=== PATIENT | female | born 1960 | race Caucasian/White ===

== ENCOUNTER 2023-02-24 11:53 | Inpatient (IN) | payer SELFPAY ==
[~2023-02-24 11:53] MED LIST: Iopamidol-370 76% 500 ML MDV (1 ML CHARGE) ONE
[2023-02-24] MEDS ORDERED: Fentanyl BOLUS 250 ML IVPB PRN ×2 (12:15→16:15)
[2023-02-24] MEDS ORDERED: Fentanyl CADD 100 ML IV SCH ×2 (12:15→16:15)
[2023-02-24] MEDS ORDERED: fentaNYL 50 mcg/mL 1 mL Vial ONE (12:20)
[2023-02-24 12:52] LABS: Actual Bicarbonate (HCO3a) 18.8 mEq/L (22-28); Analyzer IN Cardio ER; Base Excess (BEa) -4.5 mEq/L (-2.0 to +3.0); CO2 Tension 29.3 mmHg (35.0-45.0); Carboxyhemoglobin (COHb) 0.3 gm% (0.0-3.0); Hematocrit-ABG 36 % (36.0-47.0); Hemoglobin (Hb) 12.1 g/dL (12.0-16.0); O2 Tension (PaO2), arterial 109.7 mmHg (> 80.0); Potassium - ABG Lab 3.64 mmol/L (3.70-5.30); pH, Arterial 7.424 (7.35-7.45)
[2023-02-24 12:54] LABS: ALV-art Gradient 210.175 mmHg (0-20); Puncture Site RBA
[2023-02-24] MEDS ORDERED: Cefepime 2 GM VIAL ONE (13:26)
[2023-02-24] MEDS ORDERED: Vancomycin 1 GM/200 ML (FROZEN) BAG ONE (13:26)
[2023-02-24 13:42] LABS: #Neutrophils 16.4 thou/uL (1.40-6.50); %Basophils 0.2 % (0.0-1.0); %Eosinophils 0.1 % (0.0-10.0); %Lymphocytes 3.5 % (21.0-51.0); %Monocytes 5.3 % (0.0-10.0); %Neutrophils 90.2 % (42.0-75.0); Hematocrit 33.4 % (36.0-47.0); Hemoglobin 10.6 g/dL (12.0-16.0); Mean Corpuscular HGB CONC 31.7 g/dL (32.0-36.0); Mean Corpuscular Hemoglobin 25.7 pg (27.0-31.0); Mean Corpuscular Volume 81.1 fl (78.0-98.0); Platelet Count 382 10x3/uL (130-400); RBC Distribution Width 15.8 % (11.5-14.5); Red Blood Cell (RBC) Count 4.12 mill/uL (4.20-5.40); White Blood Cell (WBC) Count 18.2 10x3/uL (4.8-10.8)
[2023-02-24 13:48] LABS: Bacteria/HPF None Seen HPF (None Seen); Bilirubin Negative (Negative); Blood, Urine Negative (Negative); CAUTI Indications for Culture Alt mental st,lethar; Clarity Clear (Clear); Glucose, Urine (Dipstick) 300 mg/dL (Negative); Ketone, Urine 20 mg/dL (Negative); Leukocyte Negative Leu/uL (Negative); Nitrite Negative (Negative); Protein, Urine (Dipstick) 70 mg/dL (Neg-Trace); RBC/HPF 0-3 HPF (0-3); Specific Gravity, Urine 1.018 (1.002-1.036); Squamous Epithelial 0-3 HPF (0-3); Urobilinogen Normal mg/dL (Less than 2)
[2023-02-24 13:50] LABS: Urine Culture Reflex No No
[2023-02-24 14:12] LABS: ALT (SGPT) 21 U/L (8-55); AST (SGOT) 30 U/L (5-34); Albumin 3.3 g/dL (3.4-4.8); Alkaline Phosphatase 42 U/L (40-110); Anion Gap 20 mmol/L (10-20); BUN (Urea Nitrogen) 14 mg/dL (9.8-20.1); Calc. Creatinine Clearance 0 mL/min (70-130); Calcium 8.7 mg/dL (7.8-10.44); Carbon Dioxide 19 mmol/L (23-31); Chloride 94 mmol/L (98-107); Estimated GFR 55; Glucose 346 mg/dL (80-115); Magnesium 1.8 mg/dL (1.6-2.6); Potassium 3.9 mmol/L (3.5-5.1); Protein, Total 6.3 g/dL (5.8-8.1); Sodium 129 mmol/L (136-145)
[2023-02-24 14:16] LABS: Troponin I 0.112 ng/mL (< 0.028)
[2023-02-24 14:18] LABS: SARS-CoV-2 NAA Rapid Test Not Detected (NotDetected)
[2023-02-24 14:38] LABS: INR-International Normal Ratio 1.1; Prothrombin Time 14.2 sec (12.0-14.7)
[2023-02-24 14:40] LABS: PTT 27.2 sec (22.9-36.1)
[2023-02-24] MEDS ORDERED: Furosemide 40 MG/4 ML VIAL ONE (14:44)
[2023-02-24] MEDS ORDERED: Aspirin 300 MG Suppository ONE (14:45)
[2023-02-24] MEDS ORDERED: Ipratropium/Albuterol 3 ML NEB NEB PRN (15:39)
[2023-02-24] MEDS ORDERED: Acetaminophen 325 MG TAB PER TUBE PRN (15:39)
[2023-02-24] MEDS ORDERED: Dextrose 50% Abboject 50 ML SYRINGE SLOW IVP PRN (15:39)
[2023-02-24] MEDS ORDERED: HYDROcodone/Acetaminophen 5/325 mg Tablet PER TUBE PRN ×2 (15:39)
[2023-02-24] MEDS ORDERED: Glucagon 1 MG/ML KIT IM PRN (15:39)
[2023-02-24] MEDS ORDERED: Ondansetron PF 4 MG/2 ML Vial IVP PRN (15:39)
[2023-02-24] MEDS ORDERED: Dextrose 5% in Water 1,000 ML IV PRN (15:39)
[2023-02-24] MEDS ORDERED: Bisacodyl 5 MG TAB PO PRN (15:39)
[2023-02-24] MEDS ORDERED: Electrolyte Replacement Protocol 1 EACH IVPB SCH (15:39)
[2023-02-24] MEDS ORDERED: Azithromycin 500 MG in Sodium Chloride 0.9% 250 ML 250 ML IVPB SCH (16:00)
[2023-02-24] MEDS ORDERED: Ventilator Sedation Protocol 1 EACH FS SCH (16:00)
[2023-02-24] MEDS ORDERED: Propofol 1,000 MG/100 ML VIAL IV PRN (16:15)
[2023-02-24] MEDS ORDERED: Propofol BOLUS 1,000 MG/100 ML VIAL IV PRN (16:15)
[2023-02-24] MEDS ORDERED: DISCONTINUE PREVIOUS NARCOTIC PAIN MEDICATIONS AND BENZODIAZEPINES FS SCH (16:15)
[2023-02-24] MEDS ORDERED: Morphine 2 MG/ML VIAL SLOW IVP PRN (16:15)
[2023-02-24] MEDS ORDERED: Lorazepam 2 MG/ML VIAL SLOW IVP PRN (16:19)
[2023-02-24] MEDS ORDERED: Dexmedetomidine In 0.9 % NaCl 100 ML IVPB SCH (16:30)
[2023-02-24] MEDS: Lorazepam 2 MG/ML VIAL SLOW IVP PRN (16:46)
[2023-02-24 17:35] LABS: CRP (Inflammatory) 2.81 mg/dL (= or < 0.5); Uric Acid 5.3 mg/dL (2.6-6.0)
[2023-02-24 17:36] LABS: Lactic Acid 1.5 mmol/L (0.5-2.2)
[2023-02-24 17:40] LABS: Troponin I 0.121 ng/mL (< 0.028)
[2023-02-24 18:13] LABS: Strep pneumo Urine Ag NEGATIVE (NEGATIVE)
[2023-02-24] MEDS: HumaLOG 300 UNITS/3 ML VIAL SC PRN ×2 (18:16→22:50)
[2023-02-24] MEDS: Carvedilol 3.125 MG TAB PER TUBE SCH (18:20)
[2023-02-24] MEDS ORDERED: Furosemide 40 MG/4 ML VIAL SLOW IVP SCH (20:00)
[2023-02-24] MEDS ORDERED: Vancomycin 1 GM in Premix Bag 1 BAG IVPB SCH (21:00)
[2023-02-24] MEDS ORDERED: Magnesium 2 GM/50 ML(in water) 2 GM in Premix Bag 1 BAG IVPB SCH (21:00)
[2023-02-24] MEDS ORDERED: Cefepime 2 GM in Sodium Chloride 0.9% 100 ML IVPB SCH (21:00)
[2023-02-25] MEDS: cefTRIAXone\\ROCEPHIN 2 GM in Sodium Chloride 0.9% 100 ML IVPB SCH ×2 (00:29→23:51)
[2023-02-25 04:38] LABS: #Eosinphils 0.2 thou/uL (0.0-0.7); #Monocytes 0.7 thou/uL (0.11-0.59); #Neutrophils 7.6 thou/uL (1.40-6.50); %Basophils 0.4 % (0.0-1.0); %Lymphocytes 20.2 % (21.0-51.0); %Monocytes 6.7 % (0.0-10.0); %Neutrophils 70.2 % (42.0-75.0); Hemoglobin 9.7 g/dL (12.0-16.0); Mean Corpuscular HGB CONC 32.3 g/dL (32.0-36.0); Mean Corpuscular Hemoglobin 25.9 pg (27.0-31.0); Mean Corpuscular Volume 80.2 fl (78.0-98.0); Mean Platelet Volume 9.9 fL (7.4-10.4); Platelet Count 330 10x3/uL (130-400); RBC Distribution Width 15.8 % (11.5-14.5); Red Blood Cell (RBC) Count 3.74 mill/uL (4.20-5.40); White Blood Cell (WBC) Count 10.7 10x3/uL (4.8-10.8)
[2023-02-25 05:07] LABS: ALT (SGPT) 16 U/L (8-55); AST (SGOT) 22 U/L (5-34); Albumin 2.8 g/dL (3.4-4.8); Alkaline Phosphatase 33 U/L (40-110); Anion Gap 15 mmol/L (10-20); BUN (Urea Nitrogen) 15 mg/dL (9.8-20.1); Bilirubin, Total 0.3 mg/dL (0.2-1.2); Calc. Creatinine Clearance 64 mL/min (70-130); Calcium 8.5 mg/dL (7.8-10.44); Carbon Dioxide 25 mmol/L (23-31); Chloride 97 mmol/L (98-107); Estimated GFR 57; Glucose 101 mg/dL (80-115); Magnesium 2.4 mg/dL (1.6-2.6); Potassium 3.6 mmol/L (3.5-5.1); Protein, Total 5.8 g/dL (5.8-8.1); Sodium 133 mmol/L (136-145)
[2023-02-25] MEDS ORDERED: Furosemide 40 MG/4 ML VIAL SLOW IVP SCH (06:00)
[2023-02-25 07:21] LABS: Actual Bicarbonate (HCO3a) 25.4 mEq/L (22-28); Base Excess (BEa) 1.5 mEq/L (-2.0 to +3.0); CO2 Tension 37.4 mmHg (35.0-45.0); Carboxyhemoglobin (COHb) 0.3 gm% (0.0-3.0); Hematocrit-ABG 34 % (36.0-47.0); Hemoglobin (Hb) 11.4 g/dL (12.0-16.0); O2 Tension (PaO2), arterial 77.4 mmHg (> 80.0); Potassium - ABG Lab 3.48 mmol/L (3.70-5.30)
[2023-02-25 07:27] LABS: Puncture Site RBA
[2023-02-25] MEDS: Lorazepam 2 MG/ML VIAL SLOW IVP PRN ×2 (08:42→21:13)
[2023-02-25] MEDS: Losartan 25 MG TAB PER TUBE SCH (08:43)
[2023-02-25] MEDS: Carvedilol 3.125 MG TAB PER TUBE SCH ×2 (08:43→17:37)
[2023-02-25] MEDS ORDERED: Aspirin Chewable 81 MG TAB PER TUBE SCH ×2 (09:00)
[2023-02-25] MEDS: Dexmedetomidine 400 MCG, Admixture Fee 1 EACH in Sodium Chloride 0.9% 96 ML IVPB SCH ×2 (09:12→23:51)
[2023-02-25] MEDS ORDERED: Calcium Gluconate 9.2 MEQ in Sodium Chloride 0.9% 100 ML IVPB SCH (10:00)
[2023-02-25] MEDS: Furosemide 40 MG/4 ML VIAL SLOW IVP SCH ×3 (12:43→23:51)
[2023-02-25] MEDS ORDERED: Clopidogrel Bisulfate 300 MG TAB PER TUBE SCH (14:30)
[2023-02-25] MEDS: Potassium Bicarbonate/Cit Ac 20 MEQ TAB PO SCH (17:37)
[2023-02-26] MEDS: Furosemide 40 MG/4 ML VIAL SLOW IVP SCH ×2 (05:08→14:47)
[2023-02-26 05:23] LABS: #Basophils 0.1 thou/uL (0.0-0.2); #Eosinphils 0.4 thou/uL (0.0-0.7); #Monocytes 0.8 thou/uL (0.11-0.59); #Neutrophils 6.5 thou/uL (1.40-6.50); %Basophils 0.7 % (0.0-1.0); %Eosinophils 3.8 % (0.0-10.0); %Lymphocytes 21.1 % (21.0-51.0); %Neutrophils 65.9 % (42.0-75.0); Hematocrit 31.7 % (36.0-47.0); Hemoglobin 10.4 g/dL (12.0-16.0); Mean Corpuscular HGB CONC 32.8 g/dL (32.0-36.0); Mean Corpuscular Hemoglobin 26.4 pg (27.0-31.0); Mean Corpuscular Volume 80.5 fl (78.0-98.0); Mean Platelet Volume 10.4 fL (7.4-10.4); Platelet Count 336 10x3/uL (130-400); RBC Distribution Width 16.3 % (11.5-14.5); Red Blood Cell (RBC) Count 3.94 mill/uL (4.20-5.40); White Blood Cell (WBC) Count 9.9 10x3/uL (4.8-10.8)
[2023-02-26 05:58] LABS: ALT (SGPT) 15 U/L (8-55); AST (SGOT) 20 U/L (5-34); Albumin 2.8 g/dL (3.4-4.8); Alkaline Phosphatase 34 U/L (40-110); Anion Gap 14 mmol/L (10-20); BUN (Urea Nitrogen) 15 mg/dL (9.8-20.1); Bilirubin, Total 0.3 mg/dL (0.2-1.2); Calc. Creatinine Clearance 54 mL/min (70-130); Carbon Dioxide 26 mmol/L (23-31); Chloride 96 mmol/L (98-107); Estimated GFR 49; Globulin 3.1 g/dL (2.4-3.5); Glucose 153 mg/dL (80-115); Magnesium 1.9 mg/dL (1.6-2.6); Protein, Total 5.9 g/dL (5.8-8.1); Sodium 133 mmol/L (136-145)
[2023-02-26 06:02] LABS: Troponin I 0.096 ng/mL (< 0.028)
[2023-02-26 06:06] LABS: Cholesterol 174 mg/dl (< 200 Desired); HDL Cholesterol 29 mg/dL (>60 Neg Risk); LDL Cholesterol, Calculated 118 mg/dL; Phosphorus 4.4 mg/dL (2.3-4.7); Triglycerides 137 mg/dL (Less than 150)
[2023-02-26 07:56] LABS: Actual Bicarbonate (HCO3a) 24.6 mEq/L (22-28); Base Excess (BEa) 1.7 mEq/L (-2.0 to +3.0); CO2 Tension 32.9 mmHg (35.0-45.0); Calcium, Ionized (arterial) 1.13 mmol/L (1.12-1.30); Carboxyhemoglobin (COHb) 0.2 gm% (0.0-3.0); Hematocrit-ABG 36 % (36.0-47.0); Hemoglobin (Hb) 12.1 g/dL (12.0-16.0); Potassium - ABG Lab 3.22 mmol/L (3.70-5.30); pH, Arterial 7.491 (7.35-7.45)
[2023-02-26 07:58] LABS: ALV-art Gradient 187.875 mmHg (0-20); Puncture Site RRA
[2023-02-26] MEDS ORDERED: Potassium Bicarbonate/Cit Ac 20 MEQ TAB PER TUBE SCH (08:00)
[2023-02-26] MEDS ORDERED: Magnesium 2 GM/50 ML(in water) 2 GM in Premix Bag 1 BAG IVPB SCH (08:00)
[2023-02-26] MEDS: Losartan 25 MG TAB PER TUBE SCH (08:51)
[2023-02-26] MEDS: Carvedilol 3.125 MG TAB PER TUBE SCH ×2 (08:51→17:01)
[2023-02-26] MEDS: Clopidogrel Bisulfate 75 MG TAB PER TUBE SCH (08:52)
[2023-02-26] MEDS ORDERED: Aspirin 81 mg Enteric Coated Tablet PER TUBE SCH (09:00)
[2023-02-26] MEDS ORDERED: DC Sedation Protocol FS ONE (12:37)
[2023-02-26] MEDS ORDERED: Phenol 177 ML BOT PO PRN (12:39)
[2023-02-26] MEDS ORDERED: Benzocaine/Menthol 1 LOZ LOZ PO PRN (12:39)
[2023-02-26] MEDS: Potassium Bicarbonate/Cit Ac 20 MEQ TAB PO SCH ×2 (13:02→17:01)
[2023-02-26 17:48] LABS: Potassium 3.7 mmol/L (3.5-5.1)
[2023-02-26] MEDS: Senokot S 8.6-50 MG TAB PO SCH (20:16)
[2023-02-26] MEDS: Multivit, Therapeutic 1 TAB PO SCH (20:16)
[2023-02-26] MEDS: HumaLOG 300 UNITS/3 ML VIAL SC PRN (22:27)
[2023-02-27] MEDS: cefTRIAXone\\ROCEPHIN 2 GM in Sodium Chloride 0.9% 100 ML IVPB SCH (00:39)
[2023-02-27 04:33] LABS: #Eosinphils 0.4 thou/uL (0.0-0.7); #Monocytes 1.2 thou/uL (0.11-0.59); #Neutrophils 7.2 thou/uL (1.40-6.50); %Basophils 0.4 % (0.0-1.0); %Eosinophils 3.2 % (0.0-10.0); %Lymphocytes 19.8 % (21.0-51.0); %Monocytes 10.7 % (0.0-10.0); %Neutrophils 65.4 % (42.0-75.0); Hematocrit 33.9 % (36.0-47.0); Hemoglobin 10.7 g/dL (12.0-16.0); Mean Corpuscular HGB CONC 31.6 g/dL (32.0-36.0); Mean Corpuscular Hemoglobin 25.8 pg (27.0-31.0); Mean Corpuscular Volume 81.9 fl (78.0-98.0); Mean Platelet Volume 9.8 fL (7.4-10.4); Platelet Count 368 10x3/uL (130-400); RBC Distribution Width 16.5 % (11.5-14.5); Red Blood Cell (RBC) Count 4.14 mill/uL (4.20-5.40)
[2023-02-27 05:01] LABS: Anion Gap 16 mmol/L (10-20); BUN (Urea Nitrogen) 16 mg/dL (9.8-20.1); Calc. Creatinine Clearance 53 mL/min (70-130); Calcium 9.1 mg/dL (7.8-10.44); Carbon Dioxide 30 mmol/L (23-31); Chloride 93 mmol/L (98-107); Estimated GFR 48; Glucose 140 mg/dL (80-115); Magnesium 2.3 mg/dL (1.6-2.6); Phosphorus 4.7 mg/dL (2.3-4.7); Potassium 3.7 mmol/L (3.5-5.1); Sodium 135 mmol/L (136-145)
[2023-02-27] MEDS: hydrALAZINE 20 MG/ML VIAL SLOW IVP PRN ×2 (07:38→21:07)
[2023-02-27] MEDS: Potassium Bicarbonate/Cit Ac 20 MEQ TAB PO SCH ×2 (07:57→17:14)
[2023-02-27] MEDS: Carvedilol 6.25 MG TAB PO SCH ×2 (08:15→17:13)
[2023-02-27] MEDS: Senokot S 8.6-50 MG TAB PO SCH ×2 (08:16→20:05)
[2023-02-27] MEDS: Aspirin Chewable 81 MG TAB PER TUBE SCH (08:16)
[2023-02-27] MEDS: Losartan 25 MG TAB PO SCH ×2 (08:16→20:05)
[2023-02-27] MEDS: Clopidogrel Bisulfate 75 MG TAB PER TUBE SCH (08:16)
[2023-02-27] MEDS: Furosemide 40 MG/4 ML VIAL SLOW IVP SCH (08:17)
[2023-02-27] MEDS: Heparin 5,000 UNITS/ML VIAL SC SCH ×2 (08:17→20:05)
[2023-02-27 10:15] LABS: O2 Tension (PaO2), arterial 56.2 mmHg (> 80.0)
[2023-02-27] MEDS: HumaLOG 300 UNITS/3 ML VIAL SC PRN ×2 (10:41→20:06)
[2023-02-27] MEDS: Multivit, Therapeutic 1 TAB PO SCH (20:05)
[2023-02-27] MEDS ORDERED: Senokot S 8.6-50 MG TAB PO SCH (21:00)
[2023-02-27] MEDS ORDERED: Labetalol HCl 100 MG/20 ML VIAL SLOW IVP SCH (22:15)
[2023-02-28] MEDS: cefTRIAXone\\ROCEPHIN 2 GM in Sodium Chloride 0.9% 100 ML IVPB SCH (00:45)
[2023-02-28] MEDS ORDERED: Melatonin 3 MG TAB PO SCH (01:00)
[2023-02-28] MEDS: hydrALAZINE 20 MG/ML VIAL SLOW IVP PRN (05:21)
[2023-02-28] MEDS: HumaLOG 300 UNITS/3 ML VIAL SC PRN ×3 (06:19→20:44)
[2023-02-28 07:57] LABS: #Basophils 0.1 thou/uL (0.0-0.2); #Eosinphils 0.3 thou/uL (0.0-0.7); #Monocytes 0.9 thou/uL (0.11-0.59); #Neutrophils 6.1 thou/uL (1.40-6.50); %Basophils 0.7 % (0.0-1.0); %Eosinophils 3.6 % (0.0-10.0); %Lymphocytes 14.7 % (21.0-51.0); %Monocytes 9.9 % (0.0-10.0); %Neutrophils 70.8 % (42.0-75.0); Hemoglobin 11.7 g/dL (12.0-16.0); Mean Corpuscular HGB CONC 31.6 g/dL (32.0-36.0); Mean Corpuscular Hemoglobin 25.9 pg (27.0-31.0); Mean Platelet Volume 9.5 fL (7.4-10.4); Platelet Count 402 10x3/uL (130-400); RBC Distribution Width 16.4 % (11.5-14.5); Red Blood Cell (RBC) Count 4.51 mill/uL (4.20-5.40); White Blood Cell (WBC) Count 8.6 10x3/uL (4.8-10.8)
[2023-02-28 08:31] LABS: Anion Gap 14 mmol/L (10-20); BUN (Urea Nitrogen) 14 mg/dL (9.8-20.1); Calc. Creatinine Clearance 63 mL/min (70-130); Calcium 9.5 mg/dL (7.8-10.44); Carbon Dioxide 29 mmol/L (23-31); Chloride 93 mmol/L (98-107); Estimated GFR 61; Glucose 162 mg/dL (80-115); Magnesium 1.9 mg/dL (1.6-2.6); Phosphorus 3.2 mg/dL (2.3-4.7); Potassium 3.6 mmol/L (3.5-5.1); Sodium 132 mmol/L (136-145)
[2023-02-28] MEDS: Potassium Bicarbonate/Cit Ac 20 MEQ TAB PO SCH ×2 (09:52→16:27)
[2023-02-28] MEDS: Senokot S 8.6-50 MG TAB PO SCH ×2 (09:53→20:09)
[2023-02-28] MEDS: Losartan 25 MG TAB PO SCH ×2 (09:53→20:09)
[2023-02-28] MEDS: Clopidogrel Bisulfate 75 MG TAB PER TUBE SCH (09:53)
[2023-02-28] MEDS: Ezetimibe 10 MG TAB PO SCH (09:53)
[2023-02-28] MEDS: Carvedilol 6.25 MG TAB PO SCH ×2 (09:53→16:27)
[2023-02-28] MEDS: Heparin 5,000 UNITS/ML VIAL SC SCH ×2 (09:54→20:08)
[2023-02-28] MEDS: Aspirin Chewable 81 MG TAB PER TUBE SCH (09:54)
[2023-02-28] MEDS: Furosemide 40 MG/4 ML VIAL SLOW IVP SCH (09:54)
[2023-02-28] MEDS ORDERED: Insulin Glargine 30 UNITS/0.3 ML VIAL SC SCH (12:30)
[2023-02-28] MEDS ORDERED: Magnesium 2 GM/50 ML(in water) 2 GM in Premix Bag 1 BAG IVPB SCH (14:00)
[2023-02-28 15:51] VITALS: BMI 29.9
[2023-02-28] MEDS: Multivit, Therapeutic 1 TAB PO SCH (20:09)
[2023-03-01] MEDS: cefTRIAXone\\ROCEPHIN 2 GM in Sodium Chloride 0.9% 100 ML IVPB SCH (01:02)
[2023-03-01 04:58] LABS: Anion Gap 13 mmol/L (10-20); BUN (Urea Nitrogen) 15 mg/dL (9.8-20.1); Calc. Creatinine Clearance 55 mL/min (70-130); Calcium 9.4 mg/dL (7.8-10.44); Carbon Dioxide 33 mmol/L (23-31); Chloride 93 mmol/L (98-107); Estimated GFR 52; Glucose 129 mg/dL (80-115); Magnesium 2.2 mg/dL (1.6-2.6); Potassium 3.9 mmol/L (3.5-5.1); Sodium 135 mmol/L (136-145)
[2023-03-01] MEDS: Carvedilol 6.25 MG TAB PO SCH (08:17)
[2023-03-01] MEDS: Potassium Bicarbonate/Cit Ac 20 MEQ TAB PO SCH (08:17)
[2023-03-01] MEDS: Heparin 5,000 UNITS/ML VIAL SC SCH (08:17)
[2023-03-01] MEDS: Losartan 25 MG TAB PO SCH (08:18)
[2023-03-01] MEDS: Senokot S 8.6-50 MG TAB PO SCH (08:19)
[2023-03-01] MEDS: Ezetimibe 10 MG TAB PO SCH (08:19)
[2023-03-01] MEDS ORDERED: Aspirin Chewable 81 MG TAB PO SCH (09:00)
[2023-03-01] MEDS ORDERED: Clopidogrel Bisulfate 75 MG TAB PO SCH (09:00)
[2023-03-01] MEDS ORDERED: Insulin Glargine 30 UNITS/0.3 ML VIAL SC SCH (09:00)
[2023-03-01] MEDS ORDERED: Acetaminophen 325 MG TAB PO PRN (09:15)
[2023-03-01] MEDS: Furosemide 40 MG/4 ML VIAL SLOW IVP SCH (09:15)
[2023-03-01] MEDS: Aspirin Chewable 81 MG TAB PER TUBE SCH (09:17)
[2023-03-01] MEDS: Clopidogrel Bisulfate 75 MG TAB PER TUBE SCH (09:17)
[2023-03-01] MEDS: HumaLOG 300 UNITS/3 ML VIAL SC PRN (13:08)
[2023-03-01 15:09] VITALS: BP 127/60; TEMP 98
[2023-03-01] MEDS ORDERED: metFORMIN 500 MG TAB PO SCH (17:00)
[2023-03-02] MEDS ORDERED: Furosemide 40 MG TAB PO SCH (07:30)
[2023-03-02] MEDS ORDERED: Potassium Bicarbonate/Cit Ac 20 MEQ TAB PO SCH (08:00)
== END 2023-03-01 16:05 | disposition home or self-care (01) | DRG 871 ==
LOC: ERS 11:53 → CCU 15:14 → IMCU/EMU 02-27 19:23 → 2NO 02-28 17:28
PROVIDERS: ADMIT Internal Medicine; ATTEND Internal Medicine
PROC: 3E04329 Introduction of Other Anti-infective into Central Vein, Percutaneous Approach (ICD-10-PCS; principal; 2023-02-24)
PROC: 02HV33Z Insertion of Infusion Device into Superior Vena Cava, Percutaneous Approach (ICD-10-PCS; 2023-02-24)
PROC: B5181ZA Fluoroscopy of Superior Vena Cava using Low Osmolar Contrast, Guidance (ICD-10-PCS; 2023-02-24)
PROC: 4A133R1 Monitoring of Arterial Saturation, Peripheral, Percutaneous Approach (ICD-10-PCS; 2023-02-24)
PROC: 0DH67UZ Insertion of Feeding Device into Stomach, Via Natural or Artificial Opening (ICD-10-PCS; 2023-02-24)
PROC: 5A1945Z Respiratory Ventilation, 24-96 Consecutive Hours (ICD-10-PCS; 2023-02-24)
PROC: 3E0G76Z Introduction of Nutritional Substance into Upper GI, Via Natural or Artificial Opening (ICD-10-PCS; 2023-02-24)
DX: A41.59 Other Gram-negative sepsis (principal); I21.A1 Myocardial infarction type 2; I50.23 Acute on chronic systolic (congestive) heart failure; J96.01 Acute respiratory failure with hypoxia; J15.6 Pneumonia due to other Gram-negative bacteria; E87.1 Hypo-osmolality and hyponatremia; I16.1 Hypertensive emergency; J98.11 Atelectasis; I13.0 Hypertensive heart and chronic kidney disease with heart failure and stage 1 through stage 4 chronic kidney disease, or unspecified chronic kidney disease; E87.20 Acidosis, unspecified; R65.20 Severe sepsis without septic shock; I25.10 Atherosclerotic heart disease of native coronary artery without angina pectoris; E78.5 Hyperlipidemia, unspecified; I25.2 Old myocardial infarction; F41.9 Anxiety disorder, unspecified; F32.A Depression, unspecified; I25.9 Chronic ischemic heart disease, unspecified; E87.6 Hypokalemia; E83.42 Hypomagnesemia; I34.0 Nonrheumatic mitral (valve) insufficiency; Z20.822 Contact with and (suspected) exposure to COVID-19; Z90.49 Acquired absence of other specified parts of digestive tract; Z90.710 Acquired absence of both cervix and uterus; Z95.828 Presence of other vascular implants and grafts; Z88.0 Allergy status to penicillin; Z95.5 Presence of coronary angioplasty implant and graft; E11.22 Type 2 diabetes mellitus with diabetic chronic kidney disease; N18.30 Chronic kidney disease, stage 3 unspecified; D63.1 Anemia in chronic kidney disease; Z79.82 Long term (current) use of aspirin; Z79.02 Long term (current) use of antithrombotics/antiplatelets; Z79.84 Long term (current) use of oral hypoglycemic drugs; Z79.899 Other long term (current) drug therapy; I25.5 Ischemic cardiomyopathy; I45.81 Long QT syndrome
CPT/HCPCS: 31500; 36415; 36416; 36556; 36600; 51702; 71045; 71275; 80048; 80053; 80061; 81001; 82570; 82805; 83605; 83735; 83880; 83930; 83935; 84100; 84145; 84300; 84484; 84550; 85025; 85610; 85730; 86140; 87040; 87086; 87449; 93005; 93010; 93306; 93798; 94002; 94003; 96365; 96366; 96368; 96375; 96376; J0360; J0612; J0692; J0696; J1644; J1650; J1815; J1940; J2060; J3010; J3370-JW; J3475; J3490; Q9967